=== PATIENT | male | born 1960 | race Asian ===

== ENCOUNTER → 2017-03-29 | Outpatient (CLI) | payer BC ==
[~2017-03-29] MED LIST: CHOL100027 PO; EZET10TA63 PO; FENO200C6 PO; IRON1CAP PO; LEVOPOW36 PO; LOSA1TAB PO; METF1TAB53 PO; METO25TA3 PO; MULT-506 PO
--- NOTE | 2017-04-03 08:41 | DIAGNOSTIC IMAGING REPORT ---
KUB CLINICAL HISTORY: N20.0 Kidney [id number] COMPARISON STUDY: 02/25/2015 FINDINGS: There is no pathologic bowel dilatation. There is a 2 mm calcification projected over the midpole of the left kidney suspicious for a calculus. There are no calcifications along the course of either ureter. IMPRESSION: Left-sided nephrolithiasis. Electronically signed by: Jony Good M.D. 04/03/2017 8:40 AM Dictated Date/Time: 04/03/2017 8:39 AM
== END | disposition home or self-care (01) ==
LOC: C.RAD 14:02
PROVIDERS: ATTEND Urology
DX: N20.0 Calculus of kidney (principal)